=== PATIENT | female | born 1980 | race Caucasian/White ===

== ENCOUNTER 2016-04-14 20:42 | Outpatient (CLI) | payer OTHER ==
[~2016-04-14] VITALS: Ht 162.6 cm; Wt 67.5 kg
[~2016-04-14 20:42] MED LIST: ACYCLOVIR400 MG PO; BENADRYL25 MG PO; CLARITIN,ALAVAR10 MG PO; CLONIDINE HCL0.1 MG PO; ENDOCET 5-3251 EACH PO; IBUPROFEN800 MG PO; MIRALAX17 GM PO; PRENATAL TABLE1 EAC3 PO; SUBOXONE 8 MG-1 EAC2 SL; Subutex PO; TRAZODONE HCL50 MG PO; TYLENOL EXTRA500 MG PO; ZANTAC150 MG PO
[2016-04-14 20:54] VITALS: BP 135/92
[2016-04-14 21:16] VITALS: BP 120/86
[2016-04-14 21:34] VITALS: BP 123/78
[2016-04-14 21:49] LABS: HEMATOCRIT 34.7 % (36.0-46.0); MCH 26.4 PG (29.0-34.0); MCHC 33.1 G/DL (30.0-36.0); MCV 79.8 FL (83-99); MEAN PLAT.VOLUME 10.1 uM^3 (9.5-12.4); PLATELET COUNT 180 K/uL (156-360); RBC DIS.WIDTH-CV 12.8 % (11.8-14.6); RBC DIS.WIDTH-SD 37.4 % (39-53); RED BLOOD COUNT 4.35 M/uL (3.80-5.20); WHITE BLOOD COUNT 6.9 K/uL (4.1-10.2)
[2016-04-14 21:55] LABS: ANION GAP 11 MEQ/L (2-14); CHLORIDE 103 MEQ/L (99-109); POTASSIUM 3.9 MEQ/L (3.7-5.4); SAMPLE HEMOLYSIS CHECK 0; SAMPLE ICTERIC CHECK 0; SAMPLE LIPEMIA CHECK 0; SODIUM 136 MEQ/L (136-147); TOTAL BILIRUBIN 0.6 MG/DL (0.0-1.0)
[2016-04-14 22:00] LABS: ALKALINE PHOSPHATASE 124 IU/L (3-129); GFR ESTIMATE (CALCULATED) > 59 mL/min/; GLUCOSE 90 mg/dL (70-99); UREA NITROGEN (BUN) 9 mg/dL (9-23)
== END 2016-04-15 01:26 | disposition home or self-care (01) ==
LOC: LDRP-OP 20:42 → 2WEST 20:43 → LDRP-OP 05-29 10:30
PROVIDERS: Nurse Practitioner
DX: O36.8130 Decreased fetal movements, third trimester, not applicable or unspecified (principal); O99.89 Other specified diseases and conditions complicating pregnancy, childbirth and the puerperium; Z3A.37 37 weeks gestation of pregnancy
CPT/HCPCS: 59025; 80053; 85027; G0378; J7120; Q0169

== ENCOUNTER 2016-04-27 06:24 | Inpatient (IN) | payer OTHER ==
[2016-04-27] VITALS (9 sets, daily range): BP systolic 111–128; BP diastolic 58–96
[~2016-04-27] VITALS: Ht 162.6 cm; Wt 68.0 kg
[2016-04-27] MEDS ORDERED: MOTRIN800 MG PO (09:22)
[2016-04-27] MEDS ORDERED: PERCOCET 5/31 TABLET PO (09:22)
[2016-04-27 10:41] LABS: AMPHETAMINES QUANT VALUE 0 NG/ML; BARBITUATES QUANT VALUE 0 NG/ML; BENZODIAZEPINES QUANT VALUE 0 NG/ML; BENZODIAZEPINES, URINE SCREEN Negative (200 ng/mL); MARIJUANA QUANT VALUE 0 NG/ML; OPIATES QUANTITATIVE VALUE 0 NG/ML; PHENCYCLIDINE QUANT VALUE 0 NG/ML
[2016-04-27] MEDS ORDERED: BUPRENORPHINE HC8 MG SL (20:30)
[2016-04-28 02:22] VITALS: BP 111/69
[2016-04-28 06:37] LABS: EOSINOPHIL (%) 0.3 % (0-5); HEMATOCRIT 29.1 % (36.0-46.0); IMMATURE GRANULOCYTE (%) 0.1 % (0.0-0.7); LYMPHOCYTE COUNT 2.4 K/uL (1.0-2.8); MCH 25.5 PG (29.0-34.0); MCHC 32.3 G/DL (30.0-36.0); MCV 79.1 FL (83-99); MEAN PLAT.VOLUME 9.7 uM^3 (9.5-12.4); MONOCYTE (%) 9.9 % (3-12); MONOCYTE COUNT 0.9 K/uL (0-0.8); NEUTROPHIL (%) 63.8 % (45-76); NEUTROPHIL COUNT 5.9 K/uL (1.8-6.4); PLATELET COUNT 227 K/uL (156-360); RBC DIS.WIDTH-CV 13.1 % (11.8-14.6); RBC DIS.WIDTH-SD 37.8 % (39-53); RED BLOOD COUNT 3.68 M/uL (3.80-5.20); WHITE BLOOD COUNT 9.2 K/uL (4.1-10.2)
[2016-04-28 08:06] VITALS: BP 112/68
[2016-04-28 11:27] VITALS: BP 107/67
[2016-04-28 15:03] VITALS: BP 107/65
[2016-04-28 19:50] VITALS: BP 112/72
[2016-04-28 22:39] VITALS: BP 100/67
[2016-04-29 03:07] VITALS: BP 121/74
[2016-04-29 07:41] VITALS: BP 122/77
[2016-04-29 14:58] VITALS: BP 107/68
[2016-04-29 23:46] VITALS: BP 123/78
[2016-04-30 07:56] VITALS: BP 131/82
[2016-04-30 15:44] VITALS: BP 123/81
[2016-04-30 23:53] VITALS: BP 118/62
[2016-05-01 08:08] VITALS: BP 113/79
[2016-05-01] MEDS ORDERED: FERROUS SULFAT325 MG PO (12:10)
[2016-05-01 15:29] VITALS: BP 121/83
== END 2016-05-01 17:58 | disposition home or self-care (01) | DRG 765 ==
LOC: 2WEST 06:24 → 2SOUTH 10:53 → 2WEST 16:12
PROVIDERS: Obstetrics & Gynecology
PROC: 10D00Z1 Extraction of Products of Conception, Low, Open Approach (ICD-10-PCS; principal; 2016-04-27)
DX: O34.211 Maternal care for low transverse scar from previous cesarean delivery (principal); O32.1XX0 Maternal care for breech presentation, not applicable or unspecified; O99.42 Diseases of the circulatory system complicating childbirth; I45.6 Pre-excitation syndrome; O99.02 Anemia complicating childbirth; D62 Acute posthemorrhagic anemia; O99.62 Diseases of the digestive system complicating childbirth; K21.9 Gastro-esophageal reflux disease without esophagitis; O99.334 Smoking (tobacco) complicating childbirth; F17.200 Nicotine dependence, unspecified, uncomplicated; O99.324 Drug use complicating childbirth; F11.10 Opioid abuse, uncomplicated; Z3A.39 39 weeks gestation of pregnancy; Z37.0 Single live birth
CPT/HCPCS: 36415; 80053; 80306 90; 85025; 86850; 86900; 86901; J0571; J0690; J1100; J1170; J1885; J2270; J2274; J2405; J3010; J7120